=== PATIENT | male | born 1975 | race Caucasian/White ===

== ENCOUNTER 2016-08-19 10:34 | Day surgery (SDC) | payer OTHER ==
--- NOTE | 2016-08-11 13:01 | HISTORY AND PHYSICAL E ---
History and Physical NAME: RASHIDA MANCUSO : 1975 AGE: 41Y ADMITTED: 08/19/2016 ROOM: CHIEF COMPLAINT: A 41-year-old young male presented with diarrhea, chronic, at times 3-4 times a day, abdominal discomfort, complaining of gas and reflux. The patient did have upper GI series a year ago showing reflux. SOCIAL HISTORY: . Smokes a half pack daily. Drinks rarely. PAST SURGICAL HISTORY: 1. Nose surgery. 2. A cyst in his groin REVIEW OF SYSTEMS: HEENT: The patient has a hearing aid. RESPIRATORY: Sleep apnea. CARDIAC: Negative. ENDOCRINE: Negative. GASTROINTESTINAL: Abdominal pain, diarrhea, reflux. NEUROLOGIC/MUSCULOSKELETAL: Lower back pain, arthritis. FAMILY HISTORY: His father had CA of the pancreas and passed. His mom is alive; she has heart disease. PHYSICAL EXAMINATION: VITAL SIGNS: He is 41. Blood pressure 130/80, weight 230, pulse 80, respirations 18. HEENT: Normal. NECK: Supple. LUNGS: Clear. ABDOMEN: Soft. NEUROLOGIC: Negative. MEDICATIONS: 1. Mobic 7.5 mg. 2. Nexium. 3. Lidocaine patches. 4. Advil as needed. CONCLUSIONS: 1. Chronic back pain. 2. Arthritis. 3. Diarrhea. PLAN: Admit for colonoscopy on 08/19/2016. DICTATING PHYSICIAN: NAYE REDDY M.D. 1209M [id number] PHY#: [id number] ID: [id number] JOB#: [id number] ACCT: [id number] cc:[facility] NAYE REDDY M.D. >
[~2016-08-19 10:34] MED LIST: EPINEPHRINE INJ 1 MG/10 ML DISP.SYRIN ONE; FLUMAZENIL INJ 0.5 MG/5 ML VIAL IV ONE; GLUCAGON,HUMAN RECOMB 1 MG INJ ONE; GLYCOPYRROLATE INJ 0.4 MG/2 ML VIAL ONE; MIDAZOLAM 2 MG/2 ML INJ ONE; NALOXONE HCL INJ/PF 0.4 MG/1 ML SDV ONE; ONDANSETRON HCL INJ/PF 4 MG/2 ML SDV ONE
[2016-08-19] MEDS: FENTANYL CITRATE INJ/PF 100 MCG/2 ML AMPUL ONE ×2 (11:04→11:06)
[2016-08-19 12:27] VITALS: BP 130/74
[2016-08-19 12:30] LABS: ABSOLUTE BASOPHILS # (AUTO) 0.1 10^3/uL (0.0-0.2); ABSOLUTE EOSINOPHILS # (AUTO) 0.3 10^3/uL (0.0-0.6); ABSOLUTE LYMPHOCYTES (AUTO) 2.9 10^3/uL (0.5-4.7); ABSOLUTE NEUT (AUTO) 8.1 10^3/uL (1.7-8.2); BASOPHILS % (AUTO) 0.8 % (0-2); EOSINOPHILS % (AUTO) 2.4 % (0-6); HEMATOCRIT 44.8 % (37.9-51.0); HGB HCT DIFFERENCE 0.2; LYMPHOCYTES % (AUTO) 23.5 % (13-45); MEAN CORPUSCULAR HEMOGLOBIN 30.1 pg (27.0-33.4); MEAN CORPUSCULAR HGB CONC 33.4 g/dL (32.0-36.0); MEAN CORPUSCULAR VOLUME 90 fl (80-97); MONOCYTES % (AUTO) 8.2 % (3-13); RED BLOOD COUNT 4.98 10^6/uL (4.35-5.55); SEGMENTED NEUTROPHILS % (AUTO) 65.1 % (42-78); WHITE BLOOD COUNT 12.5 10^3/uL (4.0-10.5)
--- NOTE | 2016-08-19 12:48 | DISCHARGE SUMMARY E ---
Discharge Summary NAME: RASHIDA MANCUSO : 1975 AGE: 41Y ADMITTED: 08/19/2016 DISCHARGED: 08/19/2016 HISTORY: The patient is a 41-year-old male who presented with diarrhea. He underwent colonoscopy today showing benign-looking polyps in rectum and sigmoid and small polyp, 2 mm, in mid ascending. Biopsy obtained from cecum, sigmoid and rectum. DISCHARGE PLAN: 1. Baseline CBC. 2. Meds: Hold aspirin and nonsteroidals for a week. Continue the rest of his medications. The patient is to hold Mobic. Continue Nexium. 3. Diet: Soft, low-residue diet. 4. Awaiting biopsy results. The patient is to see us in the office in the next few days. Consideration for followup in 6 months to a year, awaiting biopsy results. Follow-up office visit next week. FINAL DIAGNOSIS: Colon polyps. DICTATING PHYSICIAN: NAYE REDDY M.D. 1209M [id number] PHY#: [id number] ID: [id number] JOB#: [id number] ACCT: [id number] cc:[facility] NAYE REDDY M.D. >
--- NOTE | 2016-08-19 13:44 | OPERATIVE REPORT E ---
Operative Report NAME: RASHIDA MANCUSO : 1975 AGE: 41Y DATE OF SURGERY: ROOM: PREOPERATIVE DIAGNOSIS: Diarrhea. POSTOPERATIVE DIAGNOSIS: Rectal polyps 2-3 mm in size each, 2 in number; 1 of them close to the anal verge, 1 in the rectosigmoid junction. The patient does have a small polyp in the proximal ascending colon. OPERATION: Colonoscopy. SURGEON: NAYE REDDY M.D. ANESTHESIA: Versed 4, fentanyl 200. TISSUE REMOVED OR ALTERED: Biopsy of polyp in the ascending colon, biopsy cecum for collagenous colitis, biopsy of rectosigmoid polyps. PROCEDURE: Rectal exam shows benign-looking rectal polyps. Sigmoid polyps. Descending colon normal. Transverse colon normal. Ascending colon 2 mm polyp in the mid ascending and cecum, biopsy. Scope withdrawn. The cecum, ascending, transverse, descending, and sigmoid all the way to the rectum. CONCLUSION: Multiple polyps. PLAN: Awaiting biopsy results. Consider follow-up colonoscopy in 6 months to a year pending biopsy results. DICTATING PHYSICIAN: NAYE REDDY M.D. 1217M [id number] PHY#: [id number] ID: [id number] JOB#: [id number] ACCT: [id number] cc:NAYE REDDY M.D. >
== END 2016-08-19 12:35 | disposition home or self-care (01) ==
LOC: END 10:34
PROVIDERS: ATTEND Specialist
PROC: 0DBH8ZX Excision of Cecum, Via Natural or Artificial Opening Endoscopic, Diagnostic (ICD-10-PCS; 2016-08-19)
PROC: 0DBF8ZX Excision of Right Large Intestine, Via Natural or Artificial Opening Endoscopic, Diagnostic (ICD-10-PCS; 2016-08-19)
PROC: 0DBP8ZX Excision of Rectum, Via Natural or Artificial Opening Endoscopic, Diagnostic (ICD-10-PCS; principal; 2016-08-19 11:00)
DX: D12.4 Benign neoplasm of descending colon (principal); K62.1 Rectal polyp; F17.210 Nicotine dependence, cigarettes, uncomplicated; M19.90 Unspecified osteoarthritis, unspecified site; K21.9 Gastro-esophageal reflux disease without esophagitis
CPT/HCPCS: 45380; 36415; 85025; 88305 ×2; J2250; J3010; J1610; J2405; J0171; J2310; J3490

== ENCOUNTER → 2016-08-30 | Outpatient (CLI) | payer OTHER ==
[2016-09-04 06:53] LABS: DEAMIDATED GLIADIN IGA AB 2 units (0-19); DEAMIDATED GLIADIN IGG AB 3 units (0-19); IMMUNOGLOBULIN A 2 150 mg/dL (90-386); T-TRANSGLUTAMINASE (TTG) IGG 4 U/mL (0-5)
== END ==
LOC: OD 16:20
PROVIDERS: ATTEND Specialist
DX: K90.0 Celiac disease (principal)
CPT/HCPCS: 36415; 83520

== ENCOUNTER 2016-09-14 08:30 | Day surgery (SDC) | payer OTHER ==
--- NOTE | 2016-09-07 14:53 | HISTORY AND PHYSICAL E ---
History and Physical NAME: RASHIDA MANCUSO : 1975 AGE: 41Y ADMITTED: 09/14/2016 ROOM: HISTORY: The patient presented to us with abdominal discomfort, diarrhea. REVIEW OF SYSTEMS: CONSTITUTIONAL: Sleep apnea. CARDIAC: Negative. GASTROINTESTINAL: Diarrhea, reflux. MUSCULOSKELETAL: Low back pain. FAMILY HISTORY: Father has CA. PAST MEDICAL HISTORY: Colonoscopy done scheduled in [place]. The patient presented for evaluation, celiac disease, serology, needs EGD. The patient presented at this time regarding colon exam. I did colonoscopy 07/31/16. The cecum shows sessile serrated polyp, rectum hyperplastic polyp. Colonoscopy, August 19, 2016, shows serrated polyp in the cecum. Biopsy ascending colon, biopsy for collagenous colitis. The patient needed to undergo colonoscopy 6 months to a year, serrated polyp, cecum. He does have a history of reflux. The patient has hearing aids and sleep apnea. MEDICATIONS: The patient takes Mobic, Nexium and he takes lidocaine patches and Advil. CONCLUSION: Abdominal pain; reflux. The patient admitted regarding diarrhea, question celiac disease. PLAN: Upper endoscopy. DICTATING PHYSICIAN: NAYE REDDY M.D. 1272M [id number] PHY#: [id number] ID: [id number] JOB#: [id number] ACCT: [id number] cc:[facility] NAYE XIE M.D. >
[~2016-09-14 08:30] MED LIST changes: +FENTANYL CITRATE INJ/PF 100 MCG/2 ML AMPUL ONE; -GLUCAGON,HUMAN RECOMB 1 MG INJ ONE
[2016-09-14] MEDS ORDERED: ONDANSETRON HCL INJ/PF 4 MG/2 ML SDV IV ONE (09:21)
[2016-09-14] MEDS ORDERED: MIDAZOLAM 2 MG/2 ML INJ IV ONE ×2 (09:24→09:31)
[2016-09-14] MEDS ORDERED: FENTANYL CITRATE INJ/PF 100 MCG/2 ML AMPUL IV ONE (09:26)
--- NOTE | 2016-09-14 23:01 | OPERATIVE REPORT E ---
Operative Report NAME: RASHIDA MANCUSO : 1975 AGE: 41Y DATE OF SURGERY: 09/14/2016 ROOM: PREOPERATIVE DIAGNOSIS: Abdominal pain and diarrhea. POSTOPERATIVE DIAGNOSIS: Erosive esophagitis. Multiple erosions in the mid distal esophagus. The patient takes Mobic and he is on Nexium. Gastroscopy: No ulcers, mild gastritis. Duodenoscopy: No ulcers, mild duodenitis. OPERATION: EGD. SURGEON: NAYE REDDY M.D. ANESTHESIA: Versed 3 mg and Fentanyl 100 mcg. TISSUE REMOVED OR ALTERED: Multiple biopsies of duodenum for celiac disease. Two biopsies of gastric antrum. Rule out H. pylori. DESCRIPTION OF PROCEDURE: The baby scope passed under guided vision with no difficulties. Esophagus: Junction at 40. Multiple erosions in the mid distal esophagus most likely secondary to Mobic. No definite ulcers, just erosions 2-3 mm in size with no bleeding vessels. Gastroscopy: Mild gastritis. Biopsy obtained for H. pylori. Duodenoscopy: Mild duodenitis. Biopsy obtained for celiac disease. CONCLUSIONS: Esophagitis, gastritis, duodenitis. PLAN: 1. Continue Nexium. 2. Hold Mobic. 3. Awaiting biopsy results. 4. The patient is to see us in the office in the next few days. DICTATING PHYSICIAN: NAYE REDDY M.D. 1209M [id number] Y#: [id number] ID: [id number] JOB#: [id number] ACCT: [id number] cc:[facility] NAYE REDDY M.D. >
--- NOTE | 2016-09-15 08:19 | DISCHARGE SUMMARY E ---
Discharge Summary NAME: RASHIDA MANCUSO : 1975 AGE: 41Y ADMITTED: 09/14/2016 DISCHARGED: 09/14/2016 PROCEDURE: Esophagogastroduodenoscopy with biopsy. HISTORY: A 41-year-old male who presented with diarrhea, possibility of celiac disease is consideration. scope shows no evidence of ulcerated or erosive esophagitis, mild gastritis, mild duodenitis. DISCHARGE PLAN: Awaiting biopsy results. Diarrhea etiology undetermined. The patient takes Mobic, Nexium, patches and Advil. He does have reflux abdominal pain and diarrhea. Today, his scope shows erosive esophagitis and mild gastritis, duodenitis. Continue Nexium, try to decrease nonsteroidal and Mobic. Soft diet, awaiting biopsy results. I will obtain baseline CBC, amylase, lipase and hold aspirin, Mobic, baseline CBC and the patient to see us in the office in the next few days. DICTATING PHYSICIAN: NAYE REDDY M.D. 1268M 1001 PHY#: [id number] ID: [id number] JOB#: [id number] ACCT: [id number] cc:[facility] NAYE REDDY M.D. >
[2016-09-15 10:09] LABS: ABSOLUTE BASOPHILS # (AUTO) 0.1 10^3/uL (0.0-0.2); ABSOLUTE EOSINOPHILS # (AUTO) 0.2 10^3/uL (0.0-0.6); ABSOLUTE MONOCYTES (AUTO) 0.6 10^3/uL (0.1-1.4); ABSOLUTE NEUT (AUTO) 3.8 10^3/uL (1.7-8.2); EOSINOPHILS % (AUTO) 3.1 % (0-6); HEMATOCRIT 46.7 % (37.9-51.0); HEMOGLOBIN 15.5 g/dL (13.5-17.0); HGB HCT DIFFERENCE -0.2; LYMPHOCYTES % (AUTO) 38.7 % (13-45); MEAN CORPUSCULAR HEMOGLOBIN 30.4 pg (27.0-33.4); MEAN CORPUSCULAR HGB CONC 33.2 g/dL (32.0-36.0); MEAN CORPUSCULAR VOLUME 92 fl (80-97); MONOCYTES % (AUTO) 7.4 % (3-13); RED CELL DISTRIBUTION WIDTH 13.3 % (11.5-14.0); SEGMENTED NEUTROPHILS % (AUTO) 49.8 % (42-78); WHITE BLOOD COUNT 7.7 10^3/uL (4.0-10.5)
[2016-09-16 14:15] VITALS: BP 128/83
== END 2016-09-14 10:40 | disposition home or self-care (01) ==
LOC: END 08:30
PROVIDERS: ATTEND Specialist
PROC: 0DB98ZX Excision of Duodenum, Via Natural or Artificial Opening Endoscopic, Diagnostic (ICD-10-PCS; 2016-09-14)
PROC: 0DB68ZX Excision of Stomach, Via Natural or Artificial Opening Endoscopic, Diagnostic (ICD-10-PCS; principal; 2016-09-14 09:00)
DX: K29.80 Duodenitis without bleeding (principal); K29.70 Gastritis, unspecified, without bleeding; K20.9 Esophagitis, unspecified; G47.30 Sleep apnea, unspecified; Z79.1 Long term (current) use of non-steroidal anti-inflammatories (NSAID); Z79.899 Other long term (current) drug therapy
CPT/HCPCS: 43239; 36415; 85025; 88305 ×2; J2250; J3010; J2405; J0171; J2310; J3490

== ENCOUNTER 2017-05-18 10:37 | Day surgery (SDC) | payer OTHER ==
[2017-05-18] MEDS ORDERED: ONDANSETRON HCL INJ/PF 4 MG/2 ML SDV ONE (10:40)
[2017-05-18] MEDS ORDERED: NALOXONE HCL INJ/PF 0.4 MG/1 ML SDV ONE (10:40)
[2017-05-18] MEDS ORDERED: GLYCOPYRROLATE INJ 0.4 MG/2 ML VIAL ONE (10:40)
[2017-05-18] MEDS ORDERED: FLUMAZENIL INJ 0.5 MG/5 ML VIAL ONE (10:41)
[2017-05-18] MEDS ORDERED: GLUCAGON,HUMAN RECOMB 1 MG INJ ONE (10:41)
[2017-05-18] MEDS ORDERED: EPINEPHRINE INJ 1 MG/10 ML DISP.SYRIN ONE (10:41)
[2017-05-18] MEDS ORDERED: FENTANYL CITRATE INJ/PF 100 MCG/2 ML AMPUL ONE (10:41)
[2017-05-18] MEDS: MIDAZOLAM 2 MG/2 ML INJ ONE ×3 (12:08→12:18)
--- NOTE | 2017-05-18 12:56 | Operative Report ---
Operative Report DATE OF SURGERY: 05/18/17 PREOPERATIVE DIAGNOSIS: Personal history of colon polyps POSTOPERATIVE DIAGNOSIS: Same with 2 polyps of the ascending and descending colon OPERATION: 1. Total colonoscopy to cecum with further documentation. 2. Ascending and descending colon polypectomies SURGEON: SUSANNE BRUNO ANESTHESIA: Moderate Sedation TISSUE REMOVED OR ALTERED: Polyps COMPLICATIONS: None ESTIMATED BLOOD LOSS: Scant INTRAOPERATIVE FINDINGS: See below PROCEDURE: Obtaining informed consent the patient was taken from the preoperative holding area to the main endoscopy suite where monitoring devices were attached to the patient. Plan and surgical timeout were conducted The patient was placed in the left lateral decubitus position with knees to chest. A perianal examination was performed. There was no visible or palpable anorectal pathology. Sphincter tone was felt to be normal. The flexible adult colonoscope was advanced through the anal rectal canal, all the way to the cecum. Utilization of the cecum was achieved and the ileocecal valve, the appendiceal orifice and transillumination of the anterior abdominal wall. This was an excellent study on the well-prepped bowel. The colonoscope was withdrawn slowly and methodically checked and the mucosa carefully. In the ascending colon was a 3 cm sessile polyp removed with a hot snare device and retrieved and labeled as such. No significant bleeding. There was no evidence of tumor, stricture, bleeding; in the descending colon was a small 2 mm polyp removed with the cold forceps device and labeled as descending colon polyp. Bleeding negligible. There was no evidence of diverticuloses. The scope was slowly withdrawn through the anal rectal canal. Complete visualization of the rectum was achieved with photodocumentation. The scope was withdrawn to the patient's anus. The patient tolerated the procedure well and was taken to the recovery area in stable condition. Surveillance guidelines, patient be appropriate candidate for follow-up colonoscopy in 3 years, or sooner if symptoms:
--- NOTE | 2017-05-18 12:57 | PDOC DISCHARGE SUMMARY ---
Discharge Summary (SDC) - Discharge Final Diagnosis: Multiple colon polyps status post colonoscopy with polypectomy Date of Surgery: 05/18/17 Discharge Date: 05/18/17 Condition: Good Treatment or Instructions: [address] [address] POST ENDOSCOPY DISCHARGE INSTRUCTIONS 1. Diet: Start clear liquids that a regular diet as tolerated. 2. Resume all preoperative medications. All oral anticoagulants and aspirins can be resumed 24 hours after procedure. 3. If a polypectomy was performed some bleeding per rectum may occur. This should stop within 3 days. If not, please contact the office. 4. If you had a colonoscopy you may experience some bloating and delayed return of normal bowel function for several days, your regular bowel movement pattern should resume within a week. 5. Please contact [facility] at to make an appointment with Dr. Zavala for 1 to 3 weeks following procedure. 6. If you have any questions or concerns regarding your care,treatment plan or follow up, please contact our office. 7. Per clinical guidelines we recommend you undergo a repeat colonoscopy in 3 years or sooner if symptoms develop Discharge Diet: As Tolerated Discharge Activity: Activity As Tolerated Home Care Assistance: None Needed Report the Following to Your Physician Immediately: Shortness of Breath, Increase in Pain, Fever over 101 Degrees
[2017-05-18 13:45] VITALS: BP 120/75
== END 2017-05-18 13:40 | disposition home or self-care (01) ==
LOC: END 10:37
PROVIDERS: ATTEND Surgery
PROC: 0DBK8ZX Excision of Ascending Colon, Via Natural or Artificial Opening Endoscopic, Diagnostic (ICD-10-PCS; principal; 2017-05-18 10:45)
PROC: 0DBM8ZX Excision of Descending Colon, Via Natural or Artificial Opening Endoscopic, Diagnostic (ICD-10-PCS; 2017-05-18 10:45)
DX: Z12.11 Encounter for screening for malignant neoplasm of colon (principal); K63.5 Polyp of colon; D12.2 Benign neoplasm of ascending colon; K21.9 Gastro-esophageal reflux disease without esophagitis; F17.210 Nicotine dependence, cigarettes, uncomplicated; Z79.899 Other long term (current) drug therapy
CPT/HCPCS: 45380; 45385; 88305 ×2; J2250; J3010; J0171; J1610; J2310; J2405; J3490

== ENCOUNTER 2019-05-16 06:51 | Day surgery (SDC) | payer OTHER ==
[2019-05-16] MEDS ORDERED: PROPOFOL INJ 200 MG/20 ML VIAL IV ONE (08:25)
--- NOTE | 2019-05-16 09:01 | Discharge Summary ---
Discharge Summary (SDC) - Discharge Final Diagnosis: Rectosigmoid colon polyp Date of Surgery: 05/16/19 Discharge Date: 05/16/19 Condition: Good Treatment or Instructions: [facility] [place] [address] POST ENDOSCOPY DISCHARGE INSTRUCTIONS 1. Diet: Start clear liquids that a regular diet as tolerated. 2. Resume all preoperative medications. All oral anticoagulants and aspirins can be resumed 24 hours after procedure. 3. If a polypectomy was performed some bleeding per rectum may occur. This should stop within 3 days. If not, please contact the office. 4. If you had a colonoscopy you may experience some bloating and delayed return of normal bowel function for several days, your regular bowel movement pattern should resume within a week. 5. Please contact [facility] at to make an appointment with Dr. Zavala for 1 to 3 weeks following procedure. 6. If you have any questions or concerns regarding your care,treatment plan or follow up, please contact our office. 7. Per clinical guidelines we recommend you undergo a repeat colonoscopy in 3-5 years. Referrals: ANIBAL LEE MD [Primary Care Provider] - Discharge Diet: As Tolerated Discharge Activity: Activity As Tolerated Home Care Assistance: None Needed Report the Following to Your Physician Immediately: Shortness of Breath, Increase in Pain, Fever over 101 Degrees
--- NOTE | 2019-05-16 09:04 | Operative Report ---
Operative Report DATE OF SURGERY: 05/16/19 PREOPERATIVE DIAGNOSIS: Personal history of colon and rectal polyps POSTOPERATIVE DIAGNOSIS: Same with 1 small rectosigmoid colon polyp OPERATION: 1. Total colonoscopy to cecum. 2. Rectosigmoid colon polypectomy SURGEON: SUSANNE BRUNO ANESTHESIA: LMAC TISSUE REMOVED OR ALTERED: 1 polyp COMPLICATIONS: None ESTIMATED BLOOD LOSS: Scant INTRAOPERATIVE FINDINGS: See below PROCEDURE: Obtaining informed consent the patient was taken from the preoperative holding area to the main endoscopy suite where monitoring devices were attached to the patient. Plan and surgical timeout were conducted The patient was placed in the left lateral decubitus position with knees to chest. A perianal examination was performed. There was no visible or palpable anorectal pathology. The posterior surface of the prostate gland was enlarged but no masses. Sphincter tone was felt to be normal. The flexible adult colonoscope was advanced through the anal rectal canal, all the way to the cecum. Visualization of the cecum was achieved by demonstration of the ileocecal valve, the appendiceal orifice and transillumination of the anterior abdominal wall. This was an excellent study on the well-prepped bowel. The colonoscope was withdrawn slowly and methodically checked and the mucosa carefully. There was no evidence of tumor, stricture, bleeding; the rectosigmoid colon was a small sessile polyp 3 mm, lassoed and removed but specimen lost in transition. No bleeding at the polypectomy site. There was no evidence of diverticuloses. The scope was slowly withdrawn through the anal rectal canal. Complete visualization of the rectum was achieved with photodocumentation. The scope was withdrawn to the patient's anus. Internal hemorrhoids, collapsed the patient tolerated the procedure well and was taken to the recovery area in stable condition. Per surveillance guidelines, patient will be an appropriate candidate for follow-up colonoscopy in 3-5 years.
[2019-05-16 10:15] VITALS: BP 127/83
== END 2019-05-16 10:17 | disposition home or self-care (01) ==
LOC: END 06:51
PROVIDERS: ATTEND Surgery
DX: Z12.11 Encounter for screening for malignant neoplasm of colon (principal); D12.7 Benign neoplasm of rectosigmoid junction; Z86.010 Personal history of colon polyps; Z79.899 Other long term (current) drug therapy; F17.210 Nicotine dependence, cigarettes, uncomplicated; K21.9 Gastro-esophageal reflux disease without esophagitis
CPT/HCPCS: 45385; 00811; J2704; 811